=== PATIENT | male | born 1945 | race Caucasian/White ===

== ENCOUNTER → 2021-08-08 | Day surgery (SDC) | payer MEDICARE, OTHER ==
[~2021-08-08] VITALS: Ht 170.2 cm; Wt 71.8 kg
[~2021-08-08] MED LIST: ALPR0.5T8 PO; ASPI-1450 PO; ASPIRIN 81 MG CHEWABLE TABLET ONE; ASPIRIN 81 MG CHEWABLE TABLET PO ONE; ATOR40TA28 PO; DIAZEPAM 5 MG TABLET ONE; DIAZEPAM 5 MG TABLET PO ONE; DiphenhydrAMINE HCL 50 MG CAPSULE ONE; DiphenhydrAMINE HCL 50 MG CAPSULE PO ONE; FLUT16H NASAL; FentaNYL CITRATE PF 100 MCG/2 ML VIAL IVP ONE; FentaNYL CITRATE PF 100 MCG/2 ML VIAL ONE; HEPARIN SODIUM 1000 UNITS/NS 1,000 ML IARTER ONE; HEPARIN SODIUM 1000 UNITS/NS 1,000 ML ONE; HEPARIN SODIUM,PORCINE 5,000 UNITS/ML VIAL IVP ONE; IBUP-2077 PO; IOHEXOL 300 MG/ML 100 ML VIAL ICOR ONE; IOHEXOL 300 MG/ML 100 ML VIAL ONE; IOHEXOL 300 MG/ML 150 ML VIAL ICOR ONE; IOHEXOL 300 MG/ML 150 ML VIAL ONE; IOHEXOL 300 MG/ML 50 ML VIAL ONE; LIDOCAINE 1% 30 ML/SOD BICARB 8.4% 4 ML SQ ONE; LIDOCAINE/PF 1% 30 ML VIAL ONE; LISI-658 PO; LISI-894 PO; MIDAZOLAM HCL 2 MG/2 ML VIAL IVP ONE; MIDAZOLAM HCL 2 MG/2 ML VIAL ONE; SODIUM BICARBONATE 50 MEQ/50 ML VIAL ONE; SODIUM CHLORIDE 0.9% 0 ML ONE; SODIUM CHLORIDE 0.9% 1,000 ML IV SCH; SODIUM CHLORIDE 0.9% 1,000 ML ONE; SODIUM CHLORIDE 0.9% 500 ML IV ONE; TICAGRELOR 90 MG TABLET ONE; TICAGRELOR 90 MG TABLET PO ONE; ZOLP10TA8 PO
[2021-08-08 14:23] VITALS: BP 118/64
[2021-08-08 15:35] VITALS: BP 150/59
== END | disposition home or self-care (01) ==
LOC: CATHLAB 13:12
PROVIDERS: ATTEND Internal Medicine Interventional Cardiology
DX: I25.10 Atherosclerotic heart disease of native coronary artery without angina pectoris (principal); I25.810 Atherosclerosis of coronary artery bypass graft(s) without angina pectoris; I10 Essential (primary) hypertension; E78.5 Hyperlipidemia, unspecified; Z98.890 Other specified postprocedural states; Z95.1 Presence of aortocoronary bypass graft; Z79.82 Long term (current) use of aspirin; Z79.899 Other long term (current) drug therapy
CPT/HCPCS: 92978; 92979; 93005; 93459; 99152; 99153; C1753; C1757; C1760; C1874; C1887; C9600; J1644; J2250; J3010; J3490 ×2; J7030; Q9967 ×3; 75960; 92928